=== PATIENT | male | born 1975 | race Caucasian/White ===

== ENCOUNTER 2022-02-21 14:15 | Inpatient (IN) ==
[2022-02-21 15:04] LABS: ABS Basophils 0.1 10^3/ul (0-0.2); ABS Lymphocytes 2.5 10^3/ul (1.0-4.8); ABS Monocytes 0.7 10^3/ul (0-0.8); ABS Neutrophils 5.4 10^3/ul (1.5-7.7); Eosinophil % 0.2 %; Hematocrit 48 % (42-52); Hemoglobin 16.5 g/dL (14.0-18.0); Lymphocyte % 28.3 %; Mean Corpuscular HGB Conc 34 g/dL (31-36); Mean Corpuscular Hemoglobin 30 pg (27-31); Mean Corpuscular Volume 87 fL (80-94); Nucleated Red Blood Cells % 0.1; Platelet Count 260 10^3/uL (150-450); Red Blood Count 5.52 10^6 /uL (4.18-5.48); Red Cell Distribution Width 13 % (10-15); White Blood Count 8.8 10^3/uL (3.5-10.8)
[2022-02-21 15:09] LABS: Urine Appearance Clear; Urine Bilirubin 1+ (Negative); Urine Blood Negative (Negative); Urine Color Amber; Urine Glucose Negative (Negative); Urine Ketones Negative (Negative); Urine Nitrite Negative (Negative); Urine Protein 1+(30 mg/dL) (Negative); Urine Specific Gravity 1.032 (1.002-1.030); Urine Urobilinogen Positive (Negative)
[2022-02-21 15:40] LABS: Urine Bacteria 1+ (Absent); Urine Red Blood Cell 2+(6-10/hpf) (Absent); Urine Squamous Epithelial Cell Present (Absent); Urine White Blood Cell Trace(0-5/hpf) (Absent)
[2022-02-21 15:45] LABS: ALT 18 U/L (7-52); AST 16 U/L (13-39); Acetaminophen < 15 mcg/mL; Albumin 5.1 g/dL (3.2-5.2); Albumin/Globulin Ratio 1.8 (1-3); Alcohol, S < 13 mg/dL (<13); Alkaline Phosphatase 81 U/L (35-149); Anion Gap 10 mmol/L (2-11); Blood Urea Nitrogen 20 mg/dL (6-24); CO2 Carbon Dioxide 29 mmol/L (22-32); Calcium 10.8 mg/dL (8.6-10.3); Chloride 101 mmol/L (101-111); Globulin 2.8 g/dL (2-4); Glucose 103 mg/dL (70-100); Potassium 3.7 mmol/L (3.5-5.0); Salicylate < 2.50 mg/dL (<30); Sodium 140 mmol/L (135-145); Total Protein 7.9 g/dL (6.4-8.9); eGFR CKD-EPI 110.7 (>60)
[2022-02-21 15:49] LABS: Urine Benzodiazepine Screen None Detected (None Detect); Urine Cannabinoids Screen None Detected (None Detect); Urine Opiates Screen None Detected (None Detect)
[2022-02-21 15:53] LABS: TSH Ultra Thyroid Stim Horm 1.05 mcIU/mL (0.34-5.60)
[2022-02-21] MEDS ORDERED: Nicotine Lozenge mini 4 MG LOZNG.MINI MT ONE (18:32)
[2022-02-21] MEDS ORDERED: Al Hydrox/Mg Hydrox/Simet LIQ 30 ML UDC PO PRN (19:38)
[2022-02-21] MEDS ORDERED: Lorazepam PYXIS KEY PRN (19:42)
[2022-02-21] MEDS ORDERED: Nicotine GUM 2MG FRUIT FLAVOR PO PRN (20:00)
[2022-02-21] MEDS ORDERED: LORazepam PO 0-6 for WAM protocol PO SCH (20:00)
[2022-02-21] MEDS ORDERED: LORazepam IM 0-6 mg for WAM protocol IM SCH (20:00)
[2022-02-21] MEDS: Nicotine Lozenge mini 4 MG LOZNG.MINI MT PRN (20:29)
[2022-02-22] MEDS: Nicotine Lozenge mini 4 MG LOZNG.MINI MT PRN (07:51)
[2022-02-22] MEDS: Vitamin THERAPEUTIC TAB PO SCH (07:52)
[2022-02-22] MEDS ORDERED: THIAMINE HCL 100 MG PO SCH (09:00)
[2022-02-22] MEDS ORDERED: Nicotine PATCH 14 MG/24 HR PATCH TRANSDERM SCH (09:00)
[2022-02-22] MEDS ORDERED: FOLIC ACID 1 MG TAB DAILY PO SCH (09:00)
[2022-02-22] MEDS ORDERED: Ondansetron ODT 4 mg TAB 4 MG TAB PO PRN (09:47)
[2022-02-22] MEDS: Nicotine Lozenge mini 2 MG LOZNG.MINI MT SCH ×7 (12:03→23:40)
[2022-02-22] MEDS ORDERED: OLANZapine 10 mg TAB*ODT ONE (23:17)
[2022-02-22] MEDS ORDERED: OLANZapine 10 mg TAB*ODT PO ONE (23:30)
[2022-02-23] MEDS: Nicotine Lozenge mini 2 MG LOZNG.MINI MT SCH ×11 (03:21→23:21)
[2022-02-23 08:41] VITALS: BP 119/77
[2022-02-23] MEDS: Vitamin THERAPEUTIC TAB PO SCH (08:50)
[2022-02-23] MEDS ORDERED: OLANZapine 10 mg TAB*ODT PO PRN (10:12)
[2022-02-23] MEDS: Nicotine Lozenge mini 4 MG LOZNG.MINI MT PRN (13:20)
[2022-02-24] MEDS: Nicotine Lozenge mini 2 MG LOZNG.MINI MT SCH ×4 (04:56→08:23)
[2022-02-24] MEDS: Nicotine Lozenge mini 4 MG LOZNG.MINI MT PRN (06:10)
[2022-02-24] MEDS: Vitamin THERAPEUTIC TAB PO SCH (07:25)
== END 2022-02-24 08:41 | disposition home or self-care (01) | DRG 753 ==
LOC: ED 14:15 → BSU 23:45
PROVIDERS: ADMIT Psychiatry & Neurology Addiction Psychiatry; ATTEND Psychiatry & Neurology Psychiatry